=== PATIENT | female | born 1970 | race Caucasian/White ===

== ENCOUNTER 2017-09-18 09:36 | Emergency (ER) | payer OTHER ==
[2017-09-18 10:10] VITALS: BP 106/71
--- NOTE | 2017-09-18 11:19 | UC ---
Juan Ramon Chaves Jason, scribed for Graciela Hankins MD on 09/18/17 at 1113 . General HPI - HPI Summary HPI Summary: This patient is a 46 year old F presenting to [facility] with a chief complaint of cold symptoms since 3 days ago. The patient rates the pain 4/10 in severity. Symptoms aggravated by nothing. Symptoms alleviated by nothing. Patient reports sore throat, GARSIA, ear congestion, sinus congestion, and chills. Patient denies coughing, N/V/D, loss of appetite, and fever. Additionally, she states she has been taking vitamin C and ibuprofen. - History of Current Complaint Chief Complaint: UCGeneralIllness Stated Complaint: SORE THROAT, HEADACHE Time Seen by Provider: 09/18/17 10:59 Hx Obtained From: Patient Hx Last Menstrual Period: 3 days ago Onset/Duration: Gradual Onset, Lasting Days - since 3 days ago, Still Present Timing: Constant Pain Intensity: 4 Pain Location at: throat Aggravating: nothing Alleviating: nothing Associated Signs & Symptoms: Positive: Other - sore throat, GARSIA, ear congestion, sinus congestion, chills. Patient denies coughing, N/V/D, loss of appetite, and fever. - Allergy/Home Medications Allergies/Adverse Reactions: Allergies Allergy/AdvReac Type Severity Reaction Status Date / Time Caffeine AdvReac Severe RAPID Verified 03/20/15 08:32 HEART RATE Home Medications: Home Medications Iron 2 tab PO DAILY 09/18/17 [History Confirmed 09/18/17] Methylcobalamin [B-12] 1,000 mcg PO DAILY 09/18/17 [History Confirmed 09/18/17] PMH/Surg Hx/FS Hx/Imm Hx Previously Healthy: Yes Endocrine History: Other - negative DM Other Endocrine History: negative DM Respiratory History: Other - negative asthma Other Respiratory History: negative asthma - Surgical History Surgical History: None - Family History Known Family History: Negative: Respiratory Disease, Blood Disorder - Social History Occupation: Employed Full-time Lives: With Family Alcohol Use: None Substance Use Type: None Smoking Status (MU): Never Smoked Tobacco - Immunization History Most Recent Influenza Vaccination: 07/17 Review of Systems Constitutional: Negative - fever, Chills Skin: Negative Eyes: Negative ENT: Sore Throat, Sinus Congestion, Other - ear congestion Respiratory: Negative Cardiovascular: Negative Gastrointestinal: Negative - Nausea, vomiting, diarrhea, loss of appetite Genitourinary: Negative Motor: Negative Neurovascular: Negative Musculoskeletal: Negative Neurological: Headache Psychological: Negative All Other Systems Reviewed And Are Negative: Yes Physical Exam Triage Information Reviewed: Yes Appearance: Ill-Appearing - congested, looks mildly unwell. Vital Signs: Initial Vital Signs Temp 98.9 F 09/18/17 10:06 Pulse 88 09/18/17 10:06 Resp 18 09/18/17 10:06 BP 106/71 09/18/17 10:06 Pulse Ox 100 09/18/17 10:06 Eyes: Positive: Conjunctiva Clear ENT: Positive: Pharyngeal erythema, TMs normal. Negative: Tonsillar swelling, Tonsillar exudate Neck exam: Normal Neck: Positive: Supple, Nontender, No Lymphadenopathy Respiratory: Positive: Lungs clear, Normal breath sounds Cardiovascular: Positive: RRR, No Murmur Musculoskeletal Exam: Normal Neurological Exam: Normal Psychological Exam: Normal Skin Exam: Normal Diagnostics - Laboratory Diagnostic Studies Completed/Ordered: rapid strep negative. Course/Dx - Course Course Of Treatment: symptomatic treatment of viral pharyngitis. - Differential Dx - Multi-Symptom Provider Diagnoses: pharyngitis. Discharge - Discharge Plan Condition: Stable Disposition: HOME Patient Education Materials: Pharyngitis (ED) Referrals: Kendrick Harvey MD [Primary Care Provider] - Additional Instructions: Please continue symptomatic treatment, using ibuprofen as needed for headache and sore throat. Ensure increase in rest and fluids. Follow up if you develop fever or cough with shortness of breath. The documentation as recorded by the Juan Ramon beasley Jason accurately reflects the service I personally performed and the decisions made by , Graciela Hankins MD.
== END 2017-09-18 11:25 | disposition home or self-care (01) ==
LOC: UCEAST 09:36
DX: J02.9 Acute pharyngitis, unspecified (principal)
CPT/HCPCS: 87651; 99211; G0463